=== PATIENT | female | born 1960 | race Caucasian/White ===

== ENCOUNTER → 2023-06-08 07:31 | Outpatient (REF) | payer OTHER, SELFPAY | LOC: HWRAD 07:31 | PROVIDERS: FAMILY PHYSICIAN Family Medicine | DX: M80.00XS Age-related osteoporosis with current pathological fracture, unspecified site, sequela (principal) | CPT/HCPCS: 77080 ==

== ENCOUNTER → 2024-09-24 09:21 | Outpatient (REF) | payer OTHER, SELFPAY | LOC: HWRAD 09:21 | PROVIDERS: ATTENDING PHYSICIAN Family Medicine | DX: R59.0 Localized enlarged lymph nodes (principal); R59.9 Enlarged lymph nodes, unspecified; M79.671 Pain in right foot; M25.562 Pain in left knee | CPT/HCPCS: 73564; 73630; 76536 ==

== ENCOUNTER 2024-10-22 10:03 | Emergency (ER) | payer OTHER, SELFPAY ==
[2024-10-22 10:18] VITALS: BP 160/109
[2024-10-22 10:34] LABS: Hematocrit 41.9 % (37.0-47.0); Hemoglobin 14.1 g/dL (12.0-16.0); Mean Corp Hgb Conc. 33.7 g/dL (33.0-37.0); Mean Corpuscular Volume 83.3 fL (81.0-99.0); Nucleated Red Blood Cells % 0 %; Platelet Count 315 10^3/uL (130-400); Red Cell Dist. Width 12.8 % (11.5-14.5)
[2024-10-22 10:56] LABS: ALT (SGPT) 28 U/L (0-35); AST (SGOT) 27 U/L (14-36); Albumin 4.9 g/dl (3.5-5.0); Alkaline Phosphatase 81 U/L (38-126); Blood Urea Nitrogen 21 mg/dl (7-17); Calcium 9.7 mg/dl (8.4-10.2); Carbon Dioxide 25 mmol/L (22-30); Chloride 107 mmol/L (98-107); Glucose 94 mg/dl (70-99); Potassium 4.3 mmol/L (3.5-5.1); Sodium 140 mmol/L (135-145); Total Protein 8.1 g/dl (6.3-8.2); eGFR > 60.00
[2024-10-22 11:01] LABS: Troponin I < 0.012 ng/ml
--- NOTE | 2024-10-22 12:46 | ED.GENMED ---
History of Present Illness
General
Chief Complaint: Headache
Time Seen by Provider: 10/22/24 11:49
History of Present Illness
History of Present Illness:
63-year-old female without significant past medical history presenting for headaches. Patient reports that she has been having severe headaches for the past several weeks, most notably in the past 2 weeks. She reports today she is having a frontal
headache, feels like it is a lot of pressure. She notes that she does not wake up with a headache, they usually develop throughout the day. She saw her primary care doctor several weeks back and was told that her blood pressure was high, however
opted to not take medication at that time. She saw a home visiting nurse yesterday who checked her blood pressure and noted that it was elevated. Does intermittently report some visual issues, denies any present visual changes. Denies weakness or
numbness to her extremities. Denies any recent fall or trauma. Does report about 2 weeks ago she had a fever and some sore lymph nodes, and then headaches worsened, however no fever since then. She has not been medicating herself at home for the
pain. Denies additional acute medical complaint
Past History
Past History
ED Past Medical History: GERD
ED Past Surgical History: None
Social History
Tobacco: Non-smoker
Alcohol: Occasional
Drug: None
Personal:
Living: with family
Employment: Employed (Private duty careers counsellor)
Phy Exam
Physical Exam
Physical Exam:
General: Well-appearing, no clinical signs of dehydration, nontoxic and in no acute distress
HEENT: protecting airway
Neck: appears supple
CV: Normal heart rate, regular rhythm
Resp: No accessory muscle use, no increased work of breathing, lungs clear to auscultation bilaterally
Abd: No distention
Extremities: No deformities, no swelling
Neuro: alert, no focal neurologic deficit
: deferred
Rectal: deferred
Psych: Normal affect
Skin: Intact
Course
Orders/Labs/Results
Orders:
Orders
10/22/24 10:22
Electrocardiogram (*1) Urgent
Reason for Study: Hypertension, Benign
EKG- Treatment ONCE
10/22/24 10:28
Complete Blood Count/With Diff Urgent
Comprehensive Metabolic Panel Urgent
TSH Reflex To Free T4 Urgent
Troponin I Urgent
10/22/24 12:19
CT Head W/o Iv Contrast Urgent
Comment:
Reason For Exam: headaches, HTN
10/22/24 13:25
Ketorolac [Toradol] 15 mg IM NOW STA
Abnormal Lab Results
10/22/24
10:28
MPV 10.6 H fL
(7.4-10.4)
BUN 21 H mg/dl
(7-17)
10/22/24 10:28
10/22/24 10:28
Vital Signs
Initial and Last Documented VS:
Initial Vital Signs
Temp Pulse Resp BP Pulse Ox
98.6 F 78 18 160/109 97
10/22/24 10:18 10/22/24 10:18 10/22/24 10:18 10/22/24 10:18 10/22/24 10:18
Last Documented Vital Signs
Temp Pulse Resp BP Pulse Ox
98.6 F 78 18 155/81 97
10/22/24 10:18 10/22/24 10:18 10/22/24 10:18 10/22/24 13:51 10/22/24 12:50
MDM/Problems Addressed
MDM/Problems Addressed:
63-year-old female presenting for headaches. Vital signs on arrival are significant for high blood pressure.
On exam patient is resting comfortably, no acute distress or discomfort. Afebrile, nontoxic. Symptom presentation and physical exam appears most consistent with tension versus migrainous headache. Suspect that blood pressure could be contributing,
possible component of hypertensive urgency. Lower suspicion for hypertensive emergency. No concern for infectious etiology, afebrile, no meningeal signs. No focal neurologic deficits on exam or concern for acute central neurologic process. No
report of trauma or concern for any acute traumatic intracranial abnormality. Pain is not worse in the morning time or at nighttime, without concern for increased ICP. No tenderness to the temporal arteries, without concern for temporal arteritis.
Will administer migraine cocktail and reassess for improvement. Given duration of symptoms, will obtain CT brain imaging. Given high blood pressure on arrival, will also obtain laboratory analysis to ensure no endorgan dysfunction.
14:30 - Patient CT is negative. Patient offered Toradol for headache, does not want to take the medication. Patient was prescribed naproxen 3 times a day for pain by her primary care doctor which I advised that she try. She was also prescribed a
blood pressure medication today, sent to her pharmacy. I also advised that she start taking this medication given her persistent high blood pressure. Again no concern for hypertensive urgency or emergency. Feel stable for discharge with continued
outpatient follow-up. Advised potential follow-up with neurology versus PCP if headaches persist for possible MRI imaging. Return precautions discussed
*Pulse Oximetry
SaO2: 97
Oxygen Mode of Delivery: Room air
Patient hypoxic: no
*Critical Care Note
Total Time (30-74mins, 75-104mins- exclusive of procedures): Not Applicable
ED Attending Note
-
Portions of this chart may have been created with voice recognition software.� Occasional wrong word or��sound alike� substitutions may have occurred due to the inherent limitations of voice recognition software.
Discharge Plan
Departure
Patient Disposition: Home (Routine Discharge)
Date of Disposition: 10/22/24
Time of Disposition: 14:32
Patient with high blood pressure during this ER visit?: Yes
Condition: Good
Discharge Problem:
Headache, High blood pressure
Instructions: High Blood Pressure (DC), Headache, Adult (DC)
Prescriptions:
No Action
No Current Medications
0
Referrals:
John Silva MD [Family Provider, Family Practice]
Activity Restrictions/Additional Instructions:
You were seen in the emergency department for headache
You were found to have reassuring laboratory analysis and CT imaging of your brain. We recommend that you start the blood pressure medication that was prescribed to you and take the naproxen that was prescribed to you for pain
Please follow-up closely with your primary care physician.
Return to the emergency department for any worsening of your symptoms, or any development of chest pain, difficulty breathing, abdominal pain with persistent vomiting and inability to tolerate food or liquid by mouth (concern for dehydration),
weakness, headache or confusion, fever greater than 100.4, or any additional symptoms that are concerning to you.
Thank you for choosing [facility].
Interventions
Interventions:
*Risk Screen - Suicide Last Done: 10/22/24 10:18
*General Assessment Last Done: 10/22/24 10:18
*Neglect/Abuse Screening Last Done: 10/22/24 10:18
ED- Cardiac Assessment Last Done: 10/22/24 14:17
ED- Neurological Assessment Last Done: 10/22/24 14:17
ED- Pulmonary Assessment Last Done: 10/22/24 14:17
Discharge Date and Time
Print Language: [place]
[2024-10-22 13:51] VITALS: BP 155/81
== END 2024-10-22 14:40 | disposition home or self-care (01) ==
LOC: EMR 10:03
PROVIDERS: Emergency Medicine; EMERGENCY PHYSICIAN Student in an Organized Health Care Education/Training Program; FAMILY PHYSICIAN Family Medicine
DX: R51.9 Headache, unspecified (principal); I10 Essential (primary) hypertension; K21.9 Gastro-esophageal reflux disease without esophagitis
CPT/HCPCS: 99284; 70450; 80053; 84443; 84484; 85025; 93005